=== PATIENT | female | born 2000 | race Asian ===

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

== ENCOUNTER 2018-02-01 16:53 | Emergency (ER) | payer OTHER ==
[2018-02-01] MEDS ORDERED: ALBUTEROL 3 ML DEYVIAL IH ONE (17:50)
--- NOTE | 2018-02-01 17:51 | EDPHY ---
H & P Stated Complaint: Asthma attack Time Seen by Provider: 02/01/18 17:40 HPI/ROS: CHIEF COMPLAINT: Mild asthma exacerbation HISTORY OF PRESENT ILLNESS: Patient presents the ED with complaints of a mild asthma attack. She has a history of asthma. She did use her albuterol inhaler once. She complains of some generalized anterior chest discomfort. She denies any asymmetric calf pain or swelling. She does not smoke or use oral contraceptives. There is no history of PE or DVT in her family. The patient denies any abdominal pain, fever or productive cough. She denies additional acute complaints. REVIEW OF SYSTEMS: A comprehensive 10 point review of systems is otherwise negative aside from elements mentioned in the history of present illness. Source: Patient Exam Limitations: No limitations - Personal History LMP (Females 10-55): 22-28 Days Ago Current Tetanus/Diphtheria Vaccine: Yes Tetanus Vaccine Date: 2015 - Medical/Surgical History Hx Asthma: Yes Hx Chronic Respiratory Disease: No Hx Diabetes: No Hx Cardiac Disease: No Hx Renal Disease: No Hx Cirrhosis: No Hx Alcoholism: No Hx HIV/AIDS: No Hx Splenectomy or Spleen Trauma: No Other PMH: PMHx: asthma. PSHx: denies - Social History Smoking Status: Current every day smoker - Physical Exam Exam: General Appearance: Alert, no distress Eyes: Pupils equal and round no pallor or injection ENT, Mouth: Mucous membranes moist Respiratory: Clear to auscultation bilaterally Cardiovascular: Regular rate and rhythm Gastrointestinal: Abdomen is soft and nontender, no masses, bowel sounds normal Neurological: A&O, normal motor function, normal sensory exam, normal cranial nerves Skin: Warm and dry, no rashes Musculoskeletal: Neck is supple nontender Extremities: symmetrical, full range of motion, no clinical evidence of DVT Psychiatric: Patient is oriented X 3, there is no agitation Constitutional: Initial Vital Signs Temperature (C) 37.0 C 02/01/18 16:59 Heart Rate 101 H 02/01/18 16:59 Respiratory Rate 18 02/01/18 16:59 Blood Pressure 115/81 H 02/01/18 16:59 O2 Sat (%) 97 02/01/18 16:59 O2 Delivery Mode Room Air Allergies/Adverse Reactions: No Known Allergies Allergy (Verified 02/01/18 17:04) Home Medications: Medication Instructions Recorded Albuterol 02/01/18 Medical Decision Making - Diagnostics EKG Interpretation: EKG: Complete interpretation has been separately recorded in the [facility] archive. Summary impression: Sinus rhythm, rate 67 Imaging Results: Imaging Impressions Chest X-Ray 02/01/18 17:51 Impression: 1. Mild bronchitis/airways disease. 2. No definite focal pneumonia. ED Course/Re-evaluation: The patient presents to the ED with complaints of dyspnea and mild anterior chest pain. The patient felt her symptoms were consistent with asthma. As I examined her I do not appreciate much wheezing. She is not tachypneic but was noted to be tachycardic. Chest x-ray demonstrated no evidence of a focal infiltrate or pneumothorax. Given her tachycardia and dyspnea I did screen the patient for pulmonary embolism with a D-dimer test which was negative. I feel this adequately excludes PE in this low risk by Wells criteria patient. The patient has no evidence of a significant anemia or metabolic derangement. test is negative. I re-evaluated the patient at 7:00 p.m.. At this point time I do feel she can be discharged home and continue to use her albuterol MDI as needed. She is given customary aftercare instructions and return precautions. Differential Diagnosis: Differential diagnosis considered includes asthma, bronchitis, pneumonia, pulmonary embolism, arrhythmia, pericarditis - Data Points Laboratory Results: Laboratory Results 02/01/18 18:29 02/01/18 18:29 02/01/18 02/01/18 02/01/18 18:29 18:29 18:29 WBC RBC Hgb Hct MCV MCH MCHC RDW Plt Count MPV Neut % (Auto) Lymph % (Auto) [place] % (Auto) Eos % (Auto) Baso % (Auto) Nucleat RBC Rel Count Absolute Neuts (auto) Absolute Lymphs (auto) Absolute Monos (auto) Absolute Eos (auto) Absolute Basos (auto) Absolute Nucleated RBC Immature Gran % Immature Gran # D-Dimer < 0.27 ug/mLFEU ug/mLFEU (0.00-0.50) Sodium 135 mEq/L mEq/L (135-145) Potassium 4.0 mEq/L mEq/L (3.3-5.0) Chloride 105 mEq/L mEq/L (97-110) Carbon Dioxide 21 mEq/l L mEq/l (22-31) Anion Gap 9 mEq/L mEq/L (8-16) BUN 9 mg/dL mg/dL (7-23) Creatinine 0.6 mg/dL mg/dL (0.6-1.0) Estimated GFR > 60 Glucose 82 mg/dL mg/dL (70-100) Calcium 9.7 mg/dL mg/dL (8.5-10.4) Beta HCG, Qual NEGATIVE 02/01/18 18:29 WBC 5.02 10^3/uL 10^3/uL (3.80-9.50) RBC 4.03 10^6/uL L 10^6/uL (4.18-5.33) Hgb 12.7 g/dL g/dL (12.6-16.3) Hct 39.0 % % (38.0-47.0) MCV 96.8 fL fL (81.5-99.8) MCH 31.5 pg pg (27.9-34.1) MCHC 32.6 g/dL g/dL (32.4-36.7) RDW 12.3 % % (11.5-15.2) Plt Count 263 10^3/uL 10^3/uL (150-400) MPV 10.0 fL fL (8.7-11.7) Neut % (Auto) 62.3 % % (39.3-74.2) Lymph % (Auto) 24.3 % % (15.0-45.0) [place] % (Auto) 11.6 % % (4.5-13.0) Eos % (Auto) 0.8 % % (0.6-7.6) Baso % (Auto) 0.8 % % (0.3-1.7) Nucleat RBC Rel Count 0.0 % % (0.0-0.2) Absolute Neuts (auto) 3.13 10^3/uL 10^3/uL (1.70-6.50) Absolute Lymphs (auto) 1.22 10^3/uL 10^3/uL (1.00-3.00) Absolute Monos (auto) 0.58 10^3/uL 10^3/uL (0.30-0.80) Absolute Eos (auto) 0.04 10^3/uL 10^3/uL (0.03-0.40) Absolute Basos (auto) 0.04 10^3/uL 10^3/uL (0.02-0.10) Absolute Nucleated RBC 0.00 10^3/uL 10^3/uL (0-0.01) Immature Gran % 0.2 % % (0.0-1.1) Immature Gran # 0.01 10^3/uL 10^3/uL (0.00-0.10) D-Dimer Sodium Potassium Chloride Carbon Dioxide Anion Gap BUN Creatinine Estimated GFR Glucose Calcium Beta HCG, Qual Medications Given: Discontinued Medications Albuterol (Proventil Neb) 3 ml IH EDNOW ONE Stop: 02/01/18 17:51 Last Admin: 02/01/18 18:22 Dose: 3 ml Departure - Departure Disposition: Home, Routine, Self-Care Clinical Impression: Precordial chest pain, Mild asthma Condition: Good Instructions: Asthma (ED) Additional Instructions: 1. Return to the ED for markedly worsening symptoms or other concerns. 2. Please continue to use her albuterol inhaler up to every 2-4 hours as needed for shortness of breath. 3. Tylenol as needed for chest discomfort.
[2018-02-01 18:38] LABS: PLATELET COUNT 263 10^3/uL (150-400)
--- NOTE | 2018-02-01 18:51 | CPEKG ---
Test Reason : OPEN Blood Pressure : / mmHG Vent. Rate : 067 BPM Atrial Rate : 066 BPM P-R Int : 144 ms QRS Dur : 080 ms QT Int : 394 ms P-R-T Axes : 036 037 028 degrees QTc Int : 416 ms Sinus rhythm Low voltage, extremity and precordial leads Confirmed by Usman Ríos ([id number]) on 02/01/2018 6:51:11 PM Referred By: Confirmed By:Usman Ríos
[2018-02-01 19:57] VITALS: BP 118/70
== END 2018-02-01 19:57 | disposition home or self-care (01) ==
DX: J40 Bronchitis, not specified as acute or chronic (principal); F17.200 Nicotine dependence, unspecified, uncomplicated
CPT/HCPCS: J7613

== ENCOUNTER 2018-04-27 18:07 | Emergency (ER) | payer OTHER ==
[2018-04-27] MEDS ORDERED: ONDANSETRON DISINTEGRATING 4 MG TAB PO ONE (18:52)
[2018-04-27] MEDS ORDERED: ONDANSETRON 4MG PREPACK#2 BTL TAKEHOME ONE (18:55)
--- NOTE | 2018-04-27 18:55 | EDPHY ---
H & P Stated Complaint: n/v dizzy since yesterday Time Seen by Provider: 04/27/18 18:37 HPI/ROS: CHIEF COMPLAINT: Nausea, vomiting HISTORY OF PRESENT ILLNESS: The patient presents to the ED with a 1 day history of nausea and vomiting. She admits that she is under fair amount of stress as she is studying for her finals. She reportedly has been drinking amnesia drinks. She denies any chest pain or shortness of breath. The patient is simply requesting some medication for nausea. She does not want any IVs or blood drawn as she feels imperative that she leave so that she can continue to study for her finals tomorrow. The patient denies any additional acute complaints. REVIEW OF SYSTEMS: A comprehensive 10 point review of systems is otherwise negative aside from elements mentioned in the history of present illness. Source: Patient Exam Limitations: No limitations - Personal History LMP (Females 10-55): 8-14 Days Ago Current Tetanus Diphtheria and Acellular Pertussis (TDAP): Yes Tetanus Vaccine Date: 2015 - Medical/Surgical History Hx Asthma: Yes Hx Chronic Respiratory Disease: No Hx Diabetes: No Hx Cardiac Disease: No Hx Renal Disease: No Hx Cirrhosis: No Hx Alcoholism: No Hx HIV/AIDS: No Hx Splenectomy or Spleen Trauma: No Other PMH: PMHx: asthma. PSHx: denies - Social History Smoking Status: Current every day smoker - Physical Exam Exam: General Appearance: Alert, no distress Eyes: Pupils equal and round no pallor or injection ENT, Mouth: Mucous membranes moist Respiratory: There are no retractions, lungs are clear to auscultation Cardiovascular: Regular rate and rhythm Gastrointestinal: Abdomen is soft and nontender, no masses, bowel sounds normal Neurological: A&O, normal motor function, normal sensory exam, normal cranial nerves Skin: Warm and dry, no rashes Musculoskeletal: Neck is supple nontender Extremities: symmetrical, full range of motion Psychiatric: Patient is oriented X 3, there is no agitation Constitutional: Initial Vital Signs Temperature (C) 36.8 C 04/27/18 18:22 Heart Rate 64 04/27/18 18:22 Respiratory Rate 17 04/27/18 18:22 Blood Pressure 102/76 04/27/18 18:22 O2 Sat (%) 99 04/27/18 18:22 O2 Delivery Mode Room Air Allergies/Adverse Reactions: No Known Allergies Allergy (Verified 04/27/18 18:22) Home Medications: Medication Instructions Recorded NK [No Known Home Meds] 04/27/18 Medical Decision Making ED Course/Re-evaluation: Patient is nontoxic well-appearing with a normal abdominal examination stable vital signs. The patient was given a Zofran ODT in the emergency department. The patient has declined all further testing. She is competent decision maker. She does understand that we have not excluded medical condition, or arrhythmia. Patient will be discharged home with instructions to take Zofran as needed. She should return to the ED for markedly worsening symptoms or other concerns. Departure - Departure Disposition: Home, Routine, Self-Care Clinical Impression: Nausea Condition: Good Instructions: Acute Nausea and Vomiting (ED) Additional Instructions: 1. Zofran as needed for nausea. 2. You have declined blood testing in the emergency department today please return to the emergency department should you reconsider your decision not to have testing done, for worsening symptoms or for other concerns. Referrals: JOEL Buckley,. [Clinic] - As per Instructions
[2018-04-27 19:06] VITALS: BP 91/77
== END 2018-04-27 19:12 | disposition home or self-care (01) ==
DX: R11.2 Nausea with vomiting, unspecified (principal); F17.200 Nicotine dependence, unspecified, uncomplicated; J45.909 Unspecified asthma, uncomplicated